=== PATIENT | male | born 1975 | race Two or more races ===

== ENCOUNTER 2023-11-16 11:05 | Emergency (ER) | payer OTHER ==
[~2023-11-16] VITALS: Ht 180.3 cm; Wt 84.0 kg
[2023-11-16 11:15] VITALS: TEMP 98.8
[2023-11-16 11:17] VITALS: PULSE 91; RESP 18; O2SAT 96
[2023-11-16] MEDS: SODIUM CHLORIDE 0.9% 1,000 ML IV ONE ×2 (12:14→12:15)
[2023-11-16] MEDS: chlordiazePOXIDE HCL 5 MG CAP PO ONE (12:25)
[2023-11-16] MEDS: THIAMINE 100mg/ml INJ (200mg/2ml VIAL) IV ONE (12:29)
[2023-11-16 14:10] VITALS: BP 140/82; PULSE 90; RESP 15; O2SAT 97
== END 2023-11-16 15:17 | disposition home or self-care (01) ==
LOC: ER 11:05 → EDBD 11:05 → ER 15:16
DX: F10.239 Alcohol dependence with withdrawal, unspecified (principal); F41.9 Anxiety disorder, unspecified; F12.90 Cannabis use, unspecified, uncomplicated
CPT/HCPCS: 36415; 80320; 96361; 96374; 99283; J3411